=== PATIENT | female | born 1960 | race African-American/Black ===

== ENCOUNTER 2024-02-14 06:50 | Inpatient (IN) | payer BC, OTHER ==
[2024-02-14] MEDS: SODIUM CHLORIDE 1,000 ML IV SCH (07:32)
[2024-02-14 10:08] LABS: BASO % 0.3 % (0-2.0); EOS % 0.1 % (0-4.5); HEMATOCRIT 36.3 % (32.4-45.2); HEMOGLOBIN 12.2 GM/dL (10.7-15.3); LYMPH % 6.8 % (8-40); MCH 26.9 pg (25.7-33.7); MCHC 33.5 g/dl (32.0-36.0); MEAN CELL VOLUME 80.4 fl (80-96); MEAN PLT VOLUME 7.8 fl (7.5-11.1); MONO % 4.1 % (3.8-10.2); NEUT % 88.7 % (42.8-82.8); PLATELET COUNT 329 10^3/uL (134-434); RBC 4.52 M/mm3 (3.60-5.2); RDW 13.7 % (11.6-15.6); WHITE BLOOD COUNT 13.9 K/mm3 (4.0-10.0)
[2024-02-14 10:15] LABS: INR 0.99 (0.83-1.09); PROTHROMBIN TIME (PATIENT) 11.4 SEC (9.7-13.0)
[2024-02-14] MEDS ORDERED: ACETAMINOPHEN INJECTION 100 ML ONE (10:16)
[2024-02-14 10:18] LABS: ACTIVATED PTT 30.6 SECONDS (25.2-36.5)
[2024-02-14] MEDS: ACETAMINOPHEN 1000 MG/100 ML BAG IVPB ONE (10:24)
[2024-02-14] MEDS ORDERED: amLODIPine BESYLATE 10 MG TABLET (FP) ONE (10:31)
[2024-02-14] MEDS: amLODIPine BESYLATE 10 MG TABLET (FP) PO ONE (10:41)
[2024-02-14 10:42] LABS: BLOOD UREA NITROGEN 14.5 mg/dL (7-18)
[2024-02-14 10:43] LABS: CREATININE 1.1 mg/dL (0.55-1.3)
[2024-02-14 10:45] LABS: TOT PROT 7.8 g/dl (6.4-8.2)
[2024-02-14 10:46] LABS: BILIRUBIN,TOTAL 0.3 mg/dL (0.2-1)
[2024-02-14] MEDS ORDERED: POTASSIUM CHLORIDE ORAL LIQUID 20 MEQ/15 ML ONE (12:19)
[2024-02-14] MEDS: POTASSIUM CHLORIDE ORAL LIQUID 20 MEQ/15 ML PO ONE ×2 (12:28→14:02)
[2024-02-14] MEDS ORDERED: LOSARTAN POTASSIUM 50 MG TABLET ONE (12:30)
[2024-02-14] MEDS: LOSARTAN POTASSIUM 50 MG TABLET PO ONE (12:36)
[2024-02-14 15:00] LABS: MAGNESIUM 2.1 mg/dL (1.8-2.4)
[2024-02-14 17:47] VITALS: BMI 33.0
[2024-02-14] MEDS: LABETALOL HCL 20 MG/4 ML VIAL IVPUSH PRN (21:25)
[2024-02-14] MEDS: ATORVASTATIN CA 80 MG TABLET (FP) PO SCH (21:26)
[2024-02-14] MEDS ORDERED: LABETALOL HCL 20 MG/4 ML VIAL IVPUSH PRN (21:39)
[2024-02-15] MEDS: amLODIPine BESYLATE 10 MG TABLET (FP) PO SCH (09:57)
[2024-02-15] MEDS: LOSARTAN POTASSIUM 50 MG TABLET PO SCH (09:57)
[2024-02-16 08:49] LABS: BASO % 0.5 % (0-2.0); EOS % 2.4 % (0-4.5); HEMATOCRIT 34.8 % (32.4-45.2); HEMOGLOBIN 12.2 GM/dL (10.7-15.3); LYMPH % 28.8 % (8-40); MCH 28.2 pg (25.7-33.7); MCHC 35.2 g/dl (32.0-36.0); MEAN CELL VOLUME 80.1 fl (80-96); MONO % 8.1 % (3.8-10.2); NEUT % 60.2 % (42.8-82.8); PLATELET COUNT 333 10^3/uL (134-434); RBC 4.34 M/mm3 (3.60-5.2); RDW 13.9 % (11.6-15.6); WHITE BLOOD COUNT 7.8 K/mm3 (4.0-10.0)
[2024-02-16 09:14] LABS: BLOOD UREA NITROGEN 22.6 mg/dL (7-18); CALCIUM 9.9 mg/dL (8.5-10.1)
[2024-02-16] MEDS: ASPIRIN COATED 81 MG TABLET.EC PO SCH (09:15)
[2024-02-16 09:18] LABS: CREATININE 1.2 mg/dL (0.55-1.3)
[2024-02-17 08:22] LABS: BASO % 0.6 % (0-2.0); EOS % 3.9 % (0-4.5); HEMATOCRIT 32.5 % (32.4-45.2); HEMOGLOBIN 11.2 GM/dL (10.7-15.3); LYMPH % 30.5 % (8-40); MCH 27.7 pg (25.7-33.7); MCHC 34.3 g/dl (32.0-36.0); MEAN CELL VOLUME 80.6 fl (80-96); MEAN PLT VOLUME 8.1 fl (7.5-11.1); MONO % 8.3 % (3.8-10.2); NEUT % 56.7 % (42.8-82.8); PLATELET COUNT 310 10^3/uL (134-434); RBC 4.04 M/mm3 (3.60-5.2); RDW 13.6 % (11.6-15.6); WHITE BLOOD COUNT 6.2 K/mm3 (4.0-10.0)
[2024-02-17 08:38] LABS: POTASSIUM 4.1 mmol/L (3.5-5.1)
[2024-02-17 08:43] LABS: CALCIUM 9.9 mg/dL (8.5-10.1)
[2024-02-17 08:44] LABS: ALBUMIN 3.4 g/dl (3.4-5.0); BLOOD UREA NITROGEN 22.3 mg/dL (7-18); MAGNESIUM 2.2 mg/dL (1.8-2.4)
[2024-02-17 08:47] LABS: CREATININE 1.1 mg/dL (0.55-1.3); PHOSPHOROUS 3.5 mg/dL (2.5-4.9)
[2024-02-17 08:48] LABS: BILIRUBIN,TOTAL 0.5 mg/dL (0.2-1)
[2024-02-17 08:49] LABS: TOT PROT 6.8 g/dl (6.4-8.2)
[2024-02-17 10:52] VITALS: PULSE 84
[2024-02-17 15:26] VITALS: BP 134/88; RESP 18; TEMP 98.1
== END 2024-02-17 16:00 | disposition home or self-care (01) | DRG 305 ==
LOC: JER 06:50 → JERBED 12:39 → J4W 17:25
PROVIDERS: ADMIT Student in an Organized Health Care Education/Training Program; ATTEND Internal Medicine
DX: I16.1 Hypertensive emergency (principal); S12.591A Other nondisplaced fracture of sixth cervical vertebra, initial encounter for closed fracture; I67.4 Hypertensive encephalopathy; S00.03XA Contusion of scalp, initial encounter; R55 Syncope and collapse; W18.30XA Fall on same level, unspecified, initial encounter; Y92.091 Bathroom in other non-institutional residence as the place of occurrence of the external cause; Y99.9 Unspecified external cause status; D72.829 Elevated white blood cell count, unspecified
CPT/HCPCS: 36415; 70450-TC; 70544-TC; 70547-TC; 70551-TC; 72125-TC; 80048; 80053; 80061; 82550; 82553; 82962; 83036; 83605; 83735; 84100; 84484; 85025; 85610; 85730; 86850; 86900; 86901; 87086; 87186; 93005; 93010; 93880-TC; 97116-GP; 97161-GP; 99285-25; J0131